=== PATIENT | female | born 1950 | race Caucasian/White ===

== ENCOUNTER 2016-06-11 16:45 | Emergency (ER) | payer MEDICARE, OTHER ==
[~2016-06-11] VITALS: Ht 154.9 cm; Wt 91.3 kg
[~2016-06-11 16:45] MED LIST: ASPI-556 PO; CITA20TA9 PO; INSLAN SQ; LISI-662 PO; OMEP20 PO; PRAV20TA4 PO; PREG75 PO
[2016-06-11 17:02] LABS: GLUCOSE,POINT OF CARE 156 MG/DL (70-110)
[2016-06-11 17:39] LABS: BASOPHILS % (AUTO) 0.5 % (0.0-2.0); HEMATOCRIT 32.7 % (36-46); LYMPHOCYTES # (AUTO) 1.4 K/uL (1.0-4.8); LYMPHOCYTES % (AUTO) 24.9 % (22.0-44.0); MEAN CORPUSCULAR HEMOGLOBIN 30.8 pg (26.0-34.0); MEAN CORPUSCULAR HGB CONC 33.6 G/dL (31.0-37.0); MEAN CORPUSCULAR VOLUME 92 fL (80-100); MONOCYTES # (AUTO) 0.6 K/uL (0.1-1.0); MONOCYTES % (AUTO) 10.3 % (2.0-9.0); NEUTROPHILS # (AUTO) 3.5 K/uL (1.8-7.7); NEUTROPHILS % (AUTO) 62.3 % (40.0-70.0); PLATELET COUNT (AUTO) 195 K/uL (150-450); RED BLOOD CELL COUNT(AUTO) 3.56 MIL/uL (4.00-5.20); RED CELL DISTRIBUTION WIDTH 12.7 % (11.5-14.5); WHITE BLOOD COUNT (AUTO) 5.6 K/uL (4.5-11.0)
[2016-06-11 18:01] LABS: ALANINE AMINOTRANSFERASE 21 U/L (12-78); ALBUMIN 3.4 g/dL (3.4-5.0); ANION GAP 7 mmol/L (8-16); ASPARTATE AMINOTRANSFERASE 14 U/L (15-37); BILIRUBIN,TOTAL 0.2 mg/dL (0.1-1.0); CALCIUM, TOTAL 8.3 mg/dL (8.8-10.5); CARBON DIOXIDE 24 mmol/L (22-29); CHLORIDE 95 mmol/L (98-107); GLOMERULAR FILTR. RATE CALC > 60 mL/min (>60); SODIUM SERUM 126 mmol/L (136-145); TOTAL PROTEIN, SERUM 6.7 g/dL (6.4-8.2); UREA NITROGEN, BLOOD 8 mg/dL (7-18)
[2016-06-11 19:41] LABS: APPEARANCE,URINE CLEAR (CLEAR); GLUCOSE, URINE (UA) NEGATIVE (NEGATIVE); KETONES,URINE NEGATIVE (NEGATIVE); LEUKOCYTE ESTERASE ,URINE NEGATIVE (NEGATIVE); OCCULT BLOOD,URINE SMALL (NEGATIVE); PH,URINE 5.5 (5.0-8.0); PROTEIN,URINE NEGATIVE (NEGATIVE)
[2016-06-11 19:51] LABS: ADD UA MICROSCOPIC YES
[2016-06-11 20:01] LABS: RBC,URINE 0-2 /HPF (0-2); WBC,URINE 0-2 /HPF (0-5)
[2016-06-11 20:02] LABS: SQUAMOUS EPITHELIAL CELL,UR Rare /LPF (None Seen)
[2016-06-11] MEDS ORDERED: SODIUM CHLORIDE 0.9% 1,000 ML IV ONE (20:30)
[2016-06-11] MEDS ORDERED: BARIUM SULFATE 0.1% SUSPENSION 450 ML BOTTLE PO ONE (20:30)
[2016-06-11] MEDS ORDERED: ONDANSETRON HCL 4 MG/2 ML VIAL IVP ONE (20:30)
[2016-06-11] MEDS ORDERED: HYDROmorphone 2 MG/ML SYRINGE IVP ONE (20:30)
[2016-06-11] MEDS ORDERED: SODIUM CHLORIDE 0.9% 100 ML ONE (22:40)
[2016-06-11] MEDS ORDERED: IOVERSOL 350 MG/ML 100 ML VIAL ONE (22:41)
[2016-06-11] MEDS ORDERED: IOVERSOL 350 MG/ML 50 ML VIAL ONE (22:41)
[2016-06-12 00:59] VITALS: BP 153/72
[2016-06-12] MEDS ORDERED: HYDROmorphone 2 MG/ML SYRINGE IVP ONE (01:45)
[2016-06-12] MEDS ORDERED: ONDANSETRON HCL 4 MG/2 ML VIAL IVP ONE (01:45)
== END 2016-06-12 02:15 | disposition home or self-care (01) ==
LOC: EMS 16:53
DX: R10.10 Upper abdominal pain, unspecified (principal); E11.9 Type 2 diabetes mellitus without complications; E78.00 Pure hypercholesterolemia, unspecified; I10 Essential (primary) hypertension; Z79.82 Long term (current) use of aspirin; Z79.4 Long term (current) use of insulin; Z88.2 Allergy status to sulfonamides
CPT/HCPCS: 36415; 74177; 80053; 81001; 82962; 83690; 84484; 85025; 93005; 96361; 96374; 96375; 96376; 99285; J1170 ×2; J2405 ×2; J7050; Q9967 ×2

== ENCOUNTER 2017-06-18 11:29 | Emergency (ER) | payer MEDICARE, OTHER ==
[~2017-06-18] VITALS: Ht 154.9 cm; Wt 88.2 kg
[2017-06-18 12:02] LABS: GLUCOSE,POINT OF CARE 154 MG/DL (70-110)
[2017-06-18 12:38] LABS: BASOPHILS % (AUTO) 1.1 % (0.0-2.0); EOSINOPHILS % (AUTO) 4.2 % (1.0-6.0); HEMATOCRIT 32.6 % (36-46); HEMOGLOBIN 11.4 g/dL (12.0-16.0); LYMPHOCYTES # (AUTO) 1.4 K/uL (1.0-4.8); LYMPHOCYTES % (AUTO) 24.9 % (22.0-44.0); MEAN CORPUSCULAR HEMOGLOBIN 31.7 pg (26.0-34.0); MEAN CORPUSCULAR HGB CONC 34.8 G/dL (31.0-37.0); MEAN CORPUSCULAR VOLUME 91 fL (80-100); MONOCYTES # (AUTO) 0.5 K/uL (0.1-1.0); MONOCYTES % (AUTO) 8.8 % (2.0-9.0); NEUTROPHILS # (AUTO) 3.3 K/uL (1.8-7.7); PLATELET COUNT (AUTO) 201 K/uL (150-450); RED BLOOD CELL COUNT(AUTO) 3.58 MIL/uL (4.00-5.20); RED CELL DISTRIBUTION WIDTH 12.4 % (11.5-14.5)
[2017-06-18 12:58] LABS: ANION GAP 6 mmol/L (8-16); CALCIUM, TOTAL 8.6 mg/dL (8.8-10.5); CARBON DIOXIDE 28 mmol/L (22-29); CHLORIDE 100 mmol/L (98-107); CREATININE 0.71 mg/dL (0.60-1.30); GLOMERULAR FILTR. RATE CALC > 60 mL/min (>60); GLUCOSE,RANDOM 166 mg/dL (70-110); POTASSIUM 4.6 mmol/L (3.5-5.1); SODIUM SERUM 134 mmol/L (136-145); UREA NITROGEN, BLOOD 14 mg/dL (7-18)
[2017-06-18 13:04] LABS: ALANINE AMINOTRANSFERASE 19 U/L (12-78); ALBUMIN 3.5 g/dL (3.4-5.0); ALKALINE PHOSPHATASE 102 U/L (46-116); ASPARTATE AMINOTRANSFERASE 17 U/L (15-37); BILIRUBIN,TOTAL 0.3 mg/dL (0.1-1.0); TOTAL PROTEIN, SERUM 6.8 g/dL (6.4-8.2)
[2017-06-18] MEDS ORDERED: ACETAMINOPHEN 500 MG TABLET PO ONE (13:30)
[2017-06-18 15:08] VITALS: BP 162/70
== END 2017-06-18 15:10 | disposition home or self-care (01) ==
LOC: EMS 11:32
DX: R51 Headache (principal); R06.02 Shortness of breath; R05 Cough; I10 Essential (primary) hypertension; E11.9 Type 2 diabetes mellitus without complications; E78.00 Pure hypercholesterolemia, unspecified; Z79.4 Long term (current) use of insulin; Z79.82 Long term (current) use of aspirin; Z88.2 Allergy status to sulfonamides; Z90.49 Acquired absence of other specified parts of digestive tract; Z90.710 Acquired absence of both cervix and uterus; Z79.899 Other long term (current) drug therapy
CPT/HCPCS: 82962; 93005; 99285